=== PATIENT | female | born 1945 | race Caucasian/White ===

== ENCOUNTER 2020-10-19 05:20 | Inpatient (IN) ==
[2020-10-19] MEDS ORDERED: VANCOMYCIN INJ 1,000 MG in SODIUM CHLORIDE 0.9% 250 ML IV ONE (06:30)
[2020-10-19] MEDS ORDERED: ceFAZolin 1,000 MG in SYRINGE 1 EACH IV ONE (06:30)
[2020-10-19] MEDS: LACTATED RINGERS 1,000 ML IV SCH ×2 (06:30→09:28)
[2020-10-19] MEDS ORDERED: ACETAMINOPHEN 500 MG TABLET PO ONE (06:33)
[2020-10-19] MEDS ORDERED: SCOPOLAMINE 1.5 MG PATCH TRANSDERM ONE (06:33)
[2020-10-19] MEDS ORDERED: DIAZEPAM 5 MG TABLET PO ONE (06:33)
[2020-10-19] MEDS ORDERED: FAMOTIDINE 20 MG TABLET PO ONE (06:33)
[2020-10-19] MEDS ORDERED: GABAPENTIN 400 MG CAPSULE PO ONE (06:33)
[2020-10-19] MEDS ORDERED: LIDOCAINE 1% 5 ML VIAL ONE (06:35)
[2020-10-19] MEDS ORDERED: DEXAMETHASONE 4 MG/1 ML VIAL ONE ×3 (06:35→07:34)
[2020-10-19] MEDS ORDERED: ROPIVACAINE 0.5% 30 ML VIAL ONE ×2 (06:35→06:36)
[2020-10-19] MEDS ORDERED: ETOMIDATE 40 MG/20 ML VIAL IV ONE (06:45)
[2020-10-19] MEDS ORDERED: DEXMEDETOMIDINE 200 MCG/2 ML VIAL ONE (06:45)
[2020-10-19] MEDS ORDERED: propofoL 200 MG/20 ML VIAL IV ONE (06:45)
[2020-10-19] MEDS ORDERED: fentaNYL 100 MCG/2 ML VIAL ONE (06:45)
[2020-10-19] MEDS ORDERED: LIDOCAINE 2% 5 ML VIAL ONE (06:45)
[2020-10-19] MEDS ORDERED: BUPIVACAINE SPINAL 0.75% 2 ML AMP SPINAL ONE (06:45)
[2020-10-19] MEDS ORDERED: diphenhydrAMINE CAP 25 MG CAPSULE PO PRN (07:05)
[2020-10-19] MEDS ORDERED: ONDANSETRON 4 MG/2 ML VIAL IV PRN (07:05)
[2020-10-19] MEDS ORDERED: TEMAZEPAM 7.5 MG CAPSULE PO PRN (07:05)
[2020-10-19] MEDS ORDERED: MORPHINE 4 MG/1 ML VIAL IV PRN (07:05)
[2020-10-19] MEDS ORDERED: BISACODYL 10 MG SUPP RECTAL PRN (07:05)
[2020-10-19] MEDS ORDERED: LACTULOSE 20 GM/30 ML UDCUP PO PRN (07:05)
[2020-10-19] MEDS ORDERED: PROMETHAZINE 25 MG/1 ML VIAL IM PRN (07:05)
[2020-10-19] MEDS ORDERED: PHENYLEPHRINE 1 MG/10 ML SYRINGE IV ONE ×2 (07:33→08:52)
[2020-10-19] MEDS ORDERED: ONDANSETRON 4 MG/2 ML VIAL ONE (07:34)
[2020-10-19] MEDS ORDERED: ePHEDrine 50 MG/ML VIAL ONE (07:58)
[2020-10-19] MEDS ORDERED: QUINAPRIL HYDROCHLOROTHIAZIDE PO SCH (09:00)
[2020-10-19 09:47] LABS: Bilirubin,Urine Negative (Negative); Blood, Urine Negative (Negative); Glucose,Urine (UA) Negative (Negative); Ketones,Urine Negative (Negative); Mucus,Urine Occasional /LPF (Occasional); Nitrite,Urine Negative (Negative); Protein,Urine Negative; RBC,Urine 5 /HPF (0-4); Squamous Epithelial Cell,Urine Occasional /HPF (0-10); Urine Appearance CLEAR (Clear); Urine Color Yellow (Yellow); Urine Specific Gravity 1.015 (1.001-1.035); Urine Urobilinogen < 2.0 EU/DL (0.2-1.0); WBC,Urine <1 /HPF (0-6)
[2020-10-19] MEDS ORDERED: ACETAMINOPHEN 1,000 MG/100 ML VIAL IV ONE (09:53)
[2020-10-19] MEDS: PANTOPRAZOLE 40 MG TABLET PO SCH (13:10)
[2020-10-19] MEDS: DORZOLAMIDE/TIMOLOL OPH SOLN 10 ML BOTTLE BOTH EYES SCH ×2 (13:10→21:18)
[2020-10-19] MEDS: ceFAZolin 1,000 MG in SYRINGE 1 EACH IV SCH ×2 (13:42→21:19)
[2020-10-19] MEDS: FONDAPARINUX 2.5 MG/0.5 ML SYRINGE SUBCUT SCH (17:50)
[2020-10-19] MEDS: DOCUSATE SODIUM 100 MG CAPSULE PO SCH (21:00)
[2020-10-19] MEDS: ZALEPLON 5 MG CAPSULE PO SCH (21:00)
[2020-10-19] MEDS: MULTIVITAMIN (OCUVITE) TABLET PO SCH (21:18)
[2020-10-19] MEDS: SIMVASTATIN 10 MG TABLET PO SCH (21:18)
[2020-10-19] MEDS: SERTRALINE 50 MG TABLET PO SCH (21:19)
[2020-10-20 05:05] LABS: Basophils % 0.1 % (0.0-0.8); Hematocrit 33.8 VOL% (35.7-47.0); Immature Granulocytes % 0.5 %; Immature Granulocytes Absolute 0.05 #; Lymphocytes # 0.9 10*3/uL (1.4-4.0); Mean Corpuscular HGB Conc 32.5 GM/DL (32-36); Mean Corpuscular Volume 91.4 FL (87-102); Mean Platelet Volume 11.1 FL (9.6-12.0); Neutrophils % 84.4 % (38.7-73.9); Platelet Count 208 T/CUMM (130-400); Red Cell Distribution Width 12.2 % (9.3-17.3); White Blood Count 10.8 T/CUMM (4-12)
[2020-10-20 05:30] LABS: Calcium 8.3 MG/DL (8.5-10.1); Osmolality,Calculated 280.4 MOS/KG (273-304); Potassium 3.7 MMOL/L (3.5-5.1)
[2020-10-20] MEDS: LEVOTHYROXINE 50 MCG TABLET PO SCH (06:08)
[2020-10-20] MEDS: hydroCHLOROthiazide 12.5 MG CAPSULE PO SCH (10:18)
[2020-10-20] MEDS: DORZOLAMIDE/TIMOLOL OPH SOLN 10 ML BOTTLE BOTH EYES SCH ×2 (10:18→20:49)
[2020-10-20] MEDS: PANTOPRAZOLE 40 MG TABLET PO SCH (10:19)
[2020-10-20] MEDS: ENALAPRIL 10 MG TABLET PO SCH (10:19)
[2020-10-20] MEDS: MULTIVITAMIN (OCUVITE) TABLET PO SCH ×2 (10:19→20:47)
[2020-10-20] MEDS: DOCUSATE SODIUM 100 MG CAPSULE PO SCH ×2 (10:19→20:47)
[2020-10-20] MEDS: DICLOFENAC SODIUM 50 MG TABLET PO SCH (10:19)
[2020-10-20] MEDS: CALCIUM (CARBONATE) 600 MG TABLET PO SCH (10:19)
[2020-10-20] MEDS: FONDAPARINUX 2.5 MG/0.5 ML SYRINGE SUBCUT SCH (17:07)
[2020-10-20] MEDS: ZALEPLON 5 MG CAPSULE PO SCH (20:46)
[2020-10-20] MEDS: SIMVASTATIN 10 MG TABLET PO SCH (20:48)
[2020-10-20] MEDS: SERTRALINE 50 MG TABLET PO SCH (20:48)
[2020-10-21 04:11] LABS: Basophils % 0.1 % (0.0-0.8); Eosinophils % 0.3 % (0.00-10.9); Hematocrit 32.9 VOL% (35.7-47.0); Hemoglobin 10.5 GM/DL (12.0-16.0); Immature Granulocytes % 0.4 %; Immature Granulocytes Absolute 0.03 #; Lymphocytes # 1.9 10*3/uL (1.4-4.0); Lymphocytes % 23.5 % (21.3-54.2); Mean Corpuscular HGB Conc 31.9 GM/DL (32-36); Mean Corpuscular Volume 90.9 FL (87-102); Monocytes % 7.3 % (1.7-12.7); Neutrophils % 68.4 % (38.7-73.9); Platelet Count 195 T/CUMM (130-400); Red Blood Count 3.62 MC/CUMM (3.8-5.5); Red Cell Distribution Width 12.6 % (9.3-17.3); White Blood Count 7.9 T/CUMM (4-12)
[2020-10-21 04:32] LABS: Calcium 8.4 MG/DL (8.5-10.1); Osmolality,Calculated 278.4 MOS/KG (273-304); Potassium 3.6 MMOL/L (3.5-5.1)
[2020-10-21] MEDS: LEVOTHYROXINE 50 MCG TABLET PO SCH (06:04)
[2020-10-21] MEDS: MULTIVITAMIN (OCUVITE) TABLET PO SCH ×2 (08:44→21:09)
[2020-10-21] MEDS: PANTOPRAZOLE 40 MG TABLET PO SCH (08:44)
[2020-10-21] MEDS: CALCIUM (CARBONATE) 600 MG TABLET PO SCH (08:45)
[2020-10-21] MEDS: ENALAPRIL 10 MG TABLET PO SCH (08:45)
[2020-10-21] MEDS: hydroCHLOROthiazide 12.5 MG CAPSULE PO SCH (08:45)
[2020-10-21] MEDS: DICLOFENAC SODIUM 50 MG TABLET PO SCH (08:45)
[2020-10-21] MEDS: DOCUSATE SODIUM 100 MG CAPSULE PO SCH ×2 (08:45→21:09)
[2020-10-21] MEDS: DORZOLAMIDE/TIMOLOL OPH SOLN 10 ML BOTTLE BOTH EYES SCH ×2 (08:46→21:09)
[2020-10-21] MEDS: MAGNESIUM HYDROXIDE SUSP 30 ML UDCUP PO PRN (11:09)
[2020-10-21] MEDS: MAGNESIUM CHLORIDE 64 MG TABLET PO SCH ×2 (11:09→21:09)
[2020-10-21] MEDS: FONDAPARINUX 2.5 MG/0.5 ML SYRINGE SUBCUT SCH (18:53)
[2020-10-21] MEDS: ZALEPLON 5 MG CAPSULE PO SCH (21:09)
[2020-10-21] MEDS: SIMVASTATIN 10 MG TABLET PO SCH (21:09)
[2020-10-21] MEDS: SERTRALINE 50 MG TABLET PO SCH (21:09)
[2020-10-22] MEDS: LEVOTHYROXINE 50 MCG TABLET PO SCH (05:35)
[2020-10-22] MEDS: ENALAPRIL 10 MG TABLET PO SCH (09:02)
[2020-10-22] MEDS: DICLOFENAC SODIUM 50 MG TABLET PO SCH (09:02)
[2020-10-22] MEDS: MAGNESIUM HYDROXIDE SUSP 30 ML UDCUP PO PRN (09:02)
[2020-10-22] MEDS: MULTIVITAMIN (OCUVITE) TABLET PO SCH (09:02)
[2020-10-22] MEDS: CALCIUM (CARBONATE) 600 MG TABLET PO SCH (09:02)
[2020-10-22] MEDS: MAGNESIUM CHLORIDE 64 MG TABLET PO SCH (09:02)
[2020-10-22] MEDS: hydroCHLOROthiazide 12.5 MG CAPSULE PO SCH (09:02)
[2020-10-22] MEDS: DORZOLAMIDE/TIMOLOL OPH SOLN 10 ML BOTTLE BOTH EYES SCH (09:02)
[2020-10-22] MEDS: DOCUSATE SODIUM 100 MG CAPSULE PO SCH (09:03)
[2020-10-22] MEDS: PANTOPRAZOLE 40 MG TABLET PO SCH (09:03)
[2020-10-22 11:00] VITALS: BP 95/49
== END 2020-10-22 13:09 | disposition swing bed (61) | DRG 470 ==
LOC: N.SDSINP 05:20 → N.OR 05:20 → N.SDSINP 05:23 → EDSTATUS 07:30 → N.3E 10:18
PROVIDERS: ADMIT Orthopaedic Surgery; ATTEND Orthopaedic Surgery

== ENCOUNTER 2022-06-14 05:46 | Inpatient (IN) ==
[2022-06-14] MEDS ORDERED: VANCOMYCIN INJ 1,000 MG in SODIUM CHLORIDE 0.9% 250 ML IV ONE (06:00)
[2022-06-14] MEDS ORDERED: ACETAMINOPHEN 500 MG TABLET PO ONE (06:45)
[2022-06-14] MEDS ORDERED: FAMOTIDINE 20 MG TABLET PO ONE (06:45)
[2022-06-14] MEDS ORDERED: GABAPENTIN 400 MG CAPSULE PO ONE (06:45)
[2022-06-14] MEDS ORDERED: DIAZEPAM 5 MG TABLET PO ONE (06:45)
[2022-06-14] MEDS ORDERED: LACTATED RINGERS 1,000 ML IV SCH (07:00)
[2022-06-14] MEDS ORDERED: fentaNYL 100 MCG/2 ML VIAL ONE (09:12)
[2022-06-14] MEDS ORDERED: MIDAZOLAM 2 MG/2 ML VIAL ONE (09:12)
[2022-06-14] MEDS ORDERED: LIDOCAINE 1% 5 ML VIAL ONE (09:13)
[2022-06-14] MEDS ORDERED: DEXAMETHASONE 4 MG/1 ML VIAL ONE ×2 (09:13→11:35)
[2022-06-14] MEDS ORDERED: ROPIVACAINE 0.5% 30 ML VIAL ONE (09:13)
[2022-06-14] MEDS ORDERED: buprenorphine HCL 0.3 MG/ML VIAL ONE (09:49)
[2022-06-14] MEDS ORDERED: ePHEDrine 50 MG/ML VIAL ONE (10:15)
[2022-06-14] MEDS ORDERED: diphenhydrAMINE CAP 25 MG CAPSULE PO PRN (10:19)
[2022-06-14] MEDS ORDERED: BISACODYL 10 MG SUPP RECTAL PRN (10:19)
[2022-06-14] MEDS ORDERED: TEMAZEPAM 7.5 MG CAPSULE PO PRN (10:19)
[2022-06-14] MEDS ORDERED: PROMETHAZINE 25 MG/1 ML VIAL IM PRN (10:19)
[2022-06-14] MEDS ORDERED: MORPHINE 2 MG/1 ML SYRINGE IV PRN ×2 (10:19→10:30)
[2022-06-14] MEDS ORDERED: LACTULOSE 20 GM/30 ML UDCUP PO PRN (10:19)
[2022-06-14] MEDS ORDERED: MAGNESIUM HYDROXIDE SUSP 30 ML UDCUP PO PRN (10:19)
[2022-06-14] MEDS ORDERED: busPIRone 5 MG TABLET PO PRN (10:22)
[2022-06-14] MEDS ORDERED: DICLOFENAC 1% GEL 100 GM TUBE TOP PRN (10:22)
[2022-06-14] MEDS ORDERED: LACTATED RINGERS 1,000 ML IV ONE (11:35)
[2022-06-14] MEDS ORDERED: ONDANSETRON 4 MG/2 ML VIAL ONE (11:35)
[2022-06-14] MEDS ORDERED: SODIUM CHLORIDE 0.9% 100 ML IV ONE (11:35)
[2022-06-14 12:04] LABS: Bacteria,Urine Occasional /HPF (Few); Bilirubin,Urine Negative (Negative); Blood, Urine Small mg/dL (Negative); Glucose,Urine (UA) Negative (Negative); Ketones,Urine Negative (Negative); Mucus,Urine Few /LPF (Occasional); Nitrite,Urine Negative (Negative); Protein,Urine Negative (Negative); RBC,Urine 2 /HPF (0-4); Urine Appearance CLEAR (Clear); Urine Color Yellow (Yellow); Urine Specific Gravity 1.019 (1.001-1.035); Urine Urobilinogen < 2.0 eU/dL (<2.0)
[2022-06-14] MEDS: ONDANSETRON 4 MG/2 ML VIAL IV PRN ×2 (14:36→20:32)
[2022-06-14] MEDS: ceFAZolin 2,000 MG/50 ML DUPLEX IV SCH ×2 (16:24→22:18)
[2022-06-14] MEDS: CALCIUM (CARBONATE)/VITAMIN D 600 MG-400 UNIT TABLET PO SCH (16:25)
[2022-06-14 17:58] LABS: Basophils % 0.1 % (0.0-0.8); Hematocrit 38.3 VOL% (35.7-47.0); Hemoglobin 12.6 GM/DL (12.0-16.0); Immature Granulocytes % 0.4 %; Immature Granulocytes Absolute 0.05 #; Lymphocytes # 0.6 10*3/uL (1.4-4.0); Lymphocytes % 4.6 % (21.3-54.2); Mean Corpuscular HGB Conc 32.9 GM/DL (32-36); Mean Corpuscular Volume 89.1 FL (87-102); Mean Platelet Volume 10.3 FL (9.6-12.0); Monocytes # 0.3 10*3/uL (0.11-0.8); Monocytes % 2.4 % (1.7-12.7); Neutrophils % 92.5 % (38.7-73.9); Platelet Count 188 T/CUMM (130-400); Red Cell Distribution Width 12.1 % (9.3-17.3); White Blood Count 12.7 T/CUMM (4-12)
[2022-06-14 18:16] LABS: Alanine Aminotransferase 19 U/L (13-56); Albumin 3.4 G/DL (3.4-5.0); Alkaline Phosphatase 64 U/L (45-117); Aspartate Amino Transferase 21 U/L (0-37); Bilirubin,Total < 0.39 MG/DL (0.20-1.00); Blood Urea Nitrogen 20 MG/DL (7-18); Calcium 8.6 MG/DL (8.5-10.1); Carbon Dioxide 27 MMOL/L (21-32); Chloride 110 MMOL/L (98-107); Glucose 188 MG/DL (74-106); Osmolality,Calculated 290.1 MOS/KG (273-304); Potassium 3.6 MMOL/L (3.5-5.1); Sodium 142 MMOL/L (136-145); Total Protein 6.5 G/DL (6.4-8.2)
[2022-06-14 19:05] LABS: Band Neutrophils 5 % (0-10); Lymphocytes 2 % (20-55); Platelet Estimate Normal
[2022-06-14 19:06] LABS: Total Cells Counted 100
[2022-06-14] MEDS: FONDAPARINUX 2.5 MG/0.5 ML SYRINGE SUBCUT SCH (22:17)
[2022-06-14] MEDS: SIMVASTATIN 20 MG TABLET PO SCH (22:17)
[2022-06-14] MEDS: MULTIVITAMIN (OCUVITE) TABLET PO SCH (22:17)
[2022-06-14] MEDS: DOCUSATE SODIUM 100 MG CAPSULE PO SCH (22:17)
[2022-06-14] MEDS: ZALEPLON 5 MG CAPSULE PO SCH (22:17)
[2022-06-15 05:55] LABS: Hematocrit 33.6 VOL% (35.7-47.0); Hemoglobin 11.1 GM/DL (12.0-16.0); Immature Granulocytes % 0.4 %; Immature Granulocytes Absolute 0.04 #; Lymphocytes # 0.9 10*3/uL (1.4-4.0); Lymphocytes % 9.2 % (21.3-54.2); Mean Corpuscular Volume 89.6 FL (87-102); Mean Platelet Volume 10.7 FL (9.6-12.0); Monocytes # 0.7 10*3/uL (0.11-0.8); Monocytes % 7.2 % (1.7-12.7); Neutrophils % 83.2 % (38.7-73.9); Platelet Count 185 T/CUMM (130-400); Red Blood Count 3.75 MC/CUMM (3.8-5.5); Red Cell Distribution Width 12.1 % (9.3-17.3); White Blood Count 9.6 T/CUMM (4-12)
[2022-06-15 06:13] LABS: Osmolality,Calculated 288.8 MOS/KG (273-304); Potassium 4.1 MMOL/L (3.5-5.1)
[2022-06-15 06:22] LABS: Risk Ratio 2.43; Thyroid Stimulating Hormone 0.428 uIU/ml (0.358-3.74)
[2022-06-15] MEDS: LEVOTHYROXINE 50 MCG TABLET PO SCH (06:24)
[2022-06-15] MEDS: ENALAPRIL 5 MG TABLET PO SCH (09:49)
[2022-06-15] MEDS: DOCUSATE SODIUM 100 MG CAPSULE PO SCH ×2 (09:49→21:28)
[2022-06-15] MEDS: SERTRALINE 50 MG TABLET PO SCH (09:49)
[2022-06-15] MEDS: hydroCHLOROthiazide 12.5 MG CAPSULE PO SCH (09:49)
[2022-06-15] MEDS: PANTOPRAZOLE 40 MG TABLET PO SCH (09:49)
[2022-06-15] MEDS: MULTIVITAMIN (OCUVITE) TABLET PO SCH ×2 (09:49→21:28)
[2022-06-15] MEDS: CALCIUM (CARBONATE)/VITAMIN D 600 MG-400 UNIT TABLET PO SCH ×2 (09:49→16:46)
[2022-06-15] MEDS ORDERED: ACETAMINOPHEN 325 MG TABLET PO PRN (10:20)
[2022-06-15] MEDS: FONDAPARINUX 2.5 MG/0.5 ML SYRINGE SUBCUT SCH (21:28)
[2022-06-15] MEDS: SIMVASTATIN 20 MG TABLET PO SCH (21:28)
[2022-06-15] MEDS: ZALEPLON 5 MG CAPSULE PO SCH (21:29)
[2022-06-16] MEDS: LEVOTHYROXINE 50 MCG TABLET PO SCH (05:31)
[2022-06-16 06:52] LABS: Basophils % 0.2 % (0.0-0.8); Eosinophils # 0.1 10*3/uL (0.0-0.87); Eosinophils % 0.6 % (0.00-10.9); Hematocrit 34.9 VOL% (35.7-47.0); Hemoglobin 11.2 GM/DL (12.0-16.0); Immature Granulocytes % 0.4 %; Immature Granulocytes Absolute 0.03 #; Lymphocytes # 0.8 10*3/uL (1.4-4.0); Lymphocytes % 9.9 % (21.3-54.2); Mean Corpuscular HGB Conc 32.1 GM/DL (32-36); Mean Corpuscular Volume 90.2 FL (87-102); Mean Platelet Volume 10.7 FL (9.6-12.0); Monocytes # 0.7 10*3/uL (0.11-0.8); Monocytes % 7.6 % (1.7-12.7); Neutrophils % 81.3 % (38.7-73.9); Platelet Count 177 T/CUMM (130-400); Red Blood Count 3.87 MC/CUMM (3.8-5.5); Red Cell Distribution Width 12.8 % (9.3-17.3); White Blood Count 8.5 T/CUMM (4-12)
[2022-06-16 07:16] LABS: Calcium 8.9 MG/DL (8.5-10.1); Osmolality,Calculated 280.5 MOS/KG (273-304); Potassium 3.4 MMOL/L (3.5-5.1)
[2022-06-16] MEDS ORDERED: POTASSIUM CHLORIDE 20 MEQ TABLET PO ONE (08:00)
[2022-06-16] MEDS: SERTRALINE 50 MG TABLET PO SCH (08:51)
[2022-06-16] MEDS: ENALAPRIL 5 MG TABLET PO SCH (08:51)
[2022-06-16] MEDS: hydroCHLOROthiazide 12.5 MG CAPSULE PO SCH (08:52)
[2022-06-16] MEDS: PANTOPRAZOLE 40 MG TABLET PO SCH (08:52)
[2022-06-16] MEDS: MULTIVITAMIN (OCUVITE) TABLET PO SCH (08:52)
[2022-06-16] MEDS: DOCUSATE SODIUM 100 MG CAPSULE PO SCH (08:52)
[2022-06-16] MEDS: CALCIUM (CARBONATE)/VITAMIN D 600 MG-400 UNIT TABLET PO SCH (08:52)
[2022-06-16 09:14] LABS: Folate 7.74 NG/ML (5.38-24.0)
[2022-06-16] MEDS: ONDANSETRON 4 MG/2 ML VIAL IV PRN (10:58)
[2022-06-16 11:14] VITALS: BP 131/53
== END 2022-06-16 15:15 | disposition home health service (06) | DRG 470 ==
LOC: N.SDSINP 05:46 → N.3E 14:12
PROVIDERS: ADMIT Orthopaedic Surgery; ATTEND Orthopaedic Surgery